=== PATIENT | female | born 1980 | race American Indian/Alaskan Native ===

== ENCOUNTER 2016-08-20 18:55 | Emergency (ER) | payer SELFPAY ==
[2016-08-20 20:28] VITALS: BP 125/78
[2016-08-20 21:04] LABS: Basophils % (Auto) 0.9 % (0.0-1.8); Eosinophils % (Auto) 2.4 % (0.0-4.3); Hematocrit 42.1 % (30.3-42.9); Hemoglobin 13.4 gm/dl (10.1-14.3); Mean Corpuscular HGB Conc 32 % (30-34); Mean Corpuscular Hemoglobin 27 pg (28-32); Mean Corpuscular Volume 86 fl (79-97); Red Blood Count 4.93 M/mm3 (3.65-5.03); Red Cell Distribution Width 14.1 % (13.2-15.2); White Blood Count 16.5 K/mm3 (4.5-11.0)
[2016-08-20 21:05] LABS: Platelet Count 276 K/mm3 (140-440)
[2016-08-20 21:17] LABS: Alanine Aminotransferase 12 units/L (7-56); Albumin 4.1 g/dL (3.9-5); Alkaline Phosphatase 59 units/L (35-129); Anion Gap 15 mmol/L; Blood Urea Nitrogen 12 mg/dL (7-17); Calcium 9.2 mg/dL (8.4-10.2); Carbon Dioxide 26 mmol/L (22-30); Chloride 100.6 mmol/L (98-107); Glucose 100 mg/dL (65-100); Lipase 23 units/L (13-60); Potassium 3.5 mmol/L (3.6-5.0); Sodium 138 mmol/L (137-145); Total Protein 8.3 g/dL (6.3-8.2)
[2016-08-20 21:42] LABS: Bilirubin,Urine NEG (Negative); Blood,Urine NEG (Negative); Ketones,Urine NEG (Negative); Leukocyte Esterase,Urine MOD (Negative); Mucus,Urine 1+ /HPF; Nitrite,Urine NEG (Negative); Protein,Urine <15 mg/dL mg/dL (Negative); Urobilinogen,Urine < 2.0 mg/dL (<2.0)
== END 2016-08-21 00:50 | disposition left against medical advice (07) ==
LOC: ED 18:55
DX: R06.02 Shortness of breath (principal); Z53.21 Procedure and treatment not carried out due to patient leaving prior to being seen by health care provider
CPT/HCPCS: 36415; 80053; 81001; 83690; 84703; 85025

== ENCOUNTER 2016-11-11 10:08 | Emergency (ER) | payer OTHER ==
[2016-11-11 10:40] VITALS: BP 123/80
[2016-11-11 11:12] LABS: Basophils % (Auto) 0.9 % (0.0-1.8); Eosinophils % (Auto) 2.4 % (0.0-4.3); Hematocrit 41.8 % (30.3-42.9); Hemoglobin 13.3 gm/dl (10.1-14.3); Mean Corpuscular HGB Conc 32 % (30-34); Mean Corpuscular Hemoglobin 27 pg (28-32); Mean Corpuscular Volume 85 fl (79-97); Platelet Count 318 K/mm3 (140-440); Red Blood Count 4.91 M/mm3 (3.65-5.03); White Blood Count 9.1 K/mm3 (4.5-11.0)
[2016-11-11 11:48] LABS: Bacteria,Urine 1+ /HPF (Negative); Bilirubin,Urine SM (Negative); Blood,Urine MOD (Negative); Ketones,Urine TR mg/dL (Negative); Leukocyte Esterase,Urine MOD (Negative); Mucus,Urine 2+ /HPF; Nitrite,Urine NEG (Negative)
--- NOTE | 2016-11-11 14:03 | Emergency Department Report ---
ED Female HPI - General Chief complaint: Urogenital-Female Stated complaint: PAIN ON LEFT SIDE/ABNORMAL BLEEDING Time Seen by Provider: 11/11/16 13:12 Source: patient Mode of arrival: Ambulatory Limitations: No Limitations - History of Present Illness Initial comments: This is a 36-year-old female nontoxic, well nourished in appearance, no acute signs of distress presents to the ED complaining of abnormal menses x1 month. Patient stated she has been having these symptoms and saw her PCP and was dx with BV and is being treated with Flagyl and stated symptoms has not resolved. Patient is also c/o intermittent left sided lower abd pain intermittent before menses. Patient describes pain as cramping with level of 4/10. Patient stated has taken 2 test that are negative and wants to make sure she is not . Patient denies any pelvic pain, vaginal discharge, dizziness, headache , shortness of breathe, fever, chills, n/v, chest pain, back pain, numbness, tingling, right-sided abdominal pain. Patient stated on 10/22 patient has a normal menses for 5 days and then has another one for 1 day a week later. Today patient stated has a menses that started 2 days ago and describes it as normal but wants to make sure she is not due to left-sided abdominal cramping during menses. Patient states allergies to Keflex, PCN, and Bactrim. Patient states PMH includes Asthma, ovarian cyst, and BV. MD Complaint: vaginal bleeding -: Gradual, month(s) (1) Radiation: non-radiating Severity: mild Severity scale (0 -10): 4 Quality: cramping Consistency: intermittent Improves with: none Worsens with: none Are you Now?: No Last Menstrual Period: 11/04/16 EDC: 08/11/17 Associated Symptoms: vaginal bleeding, abdominal pain (left lower quad). denies : vaginal discharge, nausea/vomiting, fever/chills, headaches, loss of appetite , dysuria, hematuria, rash, seizure, shortness of breath, syncope, weakness - Related Data Sexually active: Yes Previous Rx's Medication Instructions Recorded Last Taken Type Nitrofurantoin [place]/M-Cryst 100 mg PO Q12HR #14 capsule 11/11/16 Unknown Rx [Macrobid CAP] Allergies Allergy/AdvReac Type Severity Reaction Status Date / Time cephalexin monohydrate AdvReac Unknown Verified 08/08/15 21:05 [From Keflex] Penicillins AdvReac Unknown Verified 08/08/15 21:04 sulfamethoxazole AdvReac Unknown Verified 08/08/15 21:05 [From Bactrim] trimethoprim [From Bactrim] AdvReac Unknown Verified 08/08/15 21:05 ED Review of Systems ROS: Stated complaint: PAIN ON LEFT SIDE/ABNORMAL BLEEDING Other details as noted in HPI Constitutional: denies: chills, fever Eyes: denies: eye pain, eye discharge, vision change ENT: denies: ear pain, throat pain Respiratory: denies: cough, shortness of breath, wheezing Cardiovascular: denies: chest pain, palpitations Endocrine: no symptoms reported Gastrointestinal: abdominal pain. denies: nausea, diarrhea Genitourinary: abnormal menses. denies: urgency, dysuria, discharge Musculoskeletal: denies: back pain, joint swelling, arthralgia Skin: denies: rash, lesions Neurological: denies: headache, weakness, paresthesias Psychiatric: denies: anxiety, depression Hematological/Lymphatic: denies: easy bleeding, easy bruising ED Past Medical Hx - Past Medical History Previous Medical History?: Yes Hx Asthma: Yes Additional medical history: Bacterial vaginosis. Ovarian cyst - Surgical History Past Surgical History?: Yes Additional Surgical History: Abd laparoscopy - Social History Smoking Status: Never Smoker Substance Use Type: Alcohol - Medications Home Medications: Home Medications Medication Instructions Recorded Confirmed Last Taken Type Nitrofurantoin [place]/M-Cryst 100 mg PO Q12HR #14 capsule 11/11/16 Unknown Rx [Macrobid CAP] ED Physical Exam - General Limitations: No Limitations General appearance: alert, in no apparent distress - Head Head exam: Present: atraumatic, normocephalic, normal inspection - Eye Eye exam: Present: normal appearance, PERRL, EOMI. Absent: scleral icterus, conjunctival injection, nystagmus, periorbital swelling, periorbital tenderness Pupils: Present: normal accommodation - ENT ENT exam: Present: normal exam, normal orophraynx, mucous membranes moist, TM's normal bilaterally, normal external ear exam - Neck Neck exam: Present: normal inspection, full ROM. Absent: tenderness, meningismus, lymphadenopathy, thyromegaly - Respiratory Respiratory exam: Present: normal lung sounds bilaterally. Absent: respiratory distress, wheezes, rales, rhonchi, stridor, chest wall tenderness, accessory muscle use, decreased breath sounds, prolonged expiratory - Cardiovascular Cardiovascular Exam: Present: regular rate, normal rhythm, normal heart sounds. Absent: bradycardia, tachycardia, irregular rhythm, systolic murmur, diastolic murmur, rubs, gallop - GI/Abdominal GI/Abdominal exam: Present: soft, normal bowel sounds. Absent: distended, tenderness, guarding, rebound, rigid, diminished bowel sounds - Expanded GI/Abdominal Exam Expanded GI/Abdominal exam: Absent: psoas sign, obturator sign, heel tap sign, Elizalde's sign, Rovsing's sign, tenderness at [place]bur[place]'s Point, ascites - Rectal Rectal exam: Present: deferred - External exam: Present: normal external exam, other (chiropractic care Laxmi Galvin present during exam). Absent: erythema, swelling, lesions, lacerations, ecchymosis, bleeding Speculum exam: Present: normal speculum exam, vaginal bleeding, other ( chiropractic care Laxmi Galvin present during exam). Absent: erythema, vaginal discharge, cervical discharge, foreign body, tissue, laceration Bi-manual exam: Present: normal bi-manual exam, other (chiropractic care Laxmi Galvin present during exam). Absent: cervical motion tendernes, adnexal tenderness, adnexal mass, uterine enlargement, uterine tenderness - Extremities Exam Extremities exam: Present: normal inspection, full ROM, normal capillary refill. Absent: tenderness, pedal edema, joint swelling, calf tenderness - Back Exam Back exam: Present: normal inspection, full ROM. Absent: tenderness, CVA tenderness (R), CVA tenderness (L), muscle spasm, paraspinal tenderness, vertebral tenderness, rash noted - Neurological Exam Neurological exam: Present: alert, oriented X3, CN II-XII intact, normal gait, reflexes normal - Psychiatric Psychiatric exam: Present: normal affect, normal mood - Skin Skin exam: Present: warm, dry, intact, normal color. Absent: rash ED Course Vital Signs 11/11/16 10:32 Temperature 98 F Pulse Rate 84 Respiratory 16 Rate Blood Pressure 123/80 O2 Sat by Pulse 99 Oximetry - Reevaluation(s) Reevaluation #1: 11/11/16 14:06 Patient is speaking in full sentences with no signs of distress noted. ED Medical Decision Making - Lab Data Result diagrams: 11/11/16 10:55 11/11/16 13:58 - Radiology Data Radiology results: report reviewed interpreted by me: Dictated by radiologist Normal examination - Medical Decision Making 36-year-old female that presents with abnormal menses x1 month. CBC, BMP, lipase , amylase, , obtained with negative findings of no abnormalities. Ultrasound of abdomen/pelvis with transvaginal and the radiologist with normal examination. UA indicates L8 RBCs, bacteria 1+, mucus 2+, and moderate leukocytes. Patient received Macrobid for UTI. Patient notified of results with noted by the patient. Patient was instructed to follow-up with a primary care doctor/pile driving technician in 3-5 days or if symptoms worsen and continue return to emergency room as soon as possible possible. At time time of discharge, the patient does not seem toxic or ill in appearance. No acute signs of distress noted. Patient agrees to discharge treatment plan of care. No further questions noted by the patient. Critical care attestation.: If time is entered above; I have spent that time in minutes in the direct care of this critically ill patient, excluding procedure time. ED Disposition Clinical Impression: Abnormal menses UTI (urinary tract infection) Qualifiers: Urinary tract infection type: site unspecified Hematuria presence: with hematuria Qualified Code(s): N39.0 - Urinary tract infection, site not specified Disposition: DC-01 TO HOME OR SELFCARE Is pt being admited?: No Does the pt Need Aspirin: No Condition: Stable Instructions: Nitrofurantoin Combination (By mouth), Urinary Tract Infection in Women (ED) Additional Instructions: Follow-up with a primary care doctor/pile driving technician in 3-5 days or if symptoms worsen and continue return to emergency room as soon as possible possible. Prescriptions: Nitrofurantoin [place]/M-Cryst [Macrobid CAP] 100 mg PO Q12HR #14 capsule Referrals: JOSIANE LOMELI MD [Primary Care Provider] - 3-5 Days DIANA AZEVEDO MD [Staff Physician] - 3-5 Days TIERRA FONTENOT MD [Staff Physician] - 3-[address] [facility] [Outside] - 3-5 Days [facility] [Outside] - 3-5 Days Forms: Work/School Release Form(ED)
[2016-11-11 14:37] LABS: Amylase 80 units/L (27-131); Anion Gap 18 mmol/L; BUN/Creatinine Ratio 11.25; Blood Urea Nitrogen 9 mg/dL (7-17); Calcium 9.5 mg/dL (8.4-10.2); Carbon Dioxide 24 mmol/L (22-30); Chloride 103.5 mmol/L (98-107); Glucose 87 mg/dL (65-100); Lipase 18 units/L (13-60); Potassium 4.6 mmol/L (3.6-5.0); Sodium 141 mmol/L (137-145)
--- NOTE | 2016-11-11 15:18 | Ultrasound Report ---
FINAL REPORT PROCEDURE: US ABDOMEN COMPLETE TECHNIQUE: Real-time sonography in multiple planes of the abdomen was performed with image documentation. CPT 78200 HISTORY: abd/pelvic pain w vag bleeding COMPARISON: No prior studies are available for comparison. FINDINGS: Liver: Normal size and echotexture with no evidence of cystic or solid mass lesions. Gallbladder: Fluid filled. No gallstones, wall thickening, pericholecystic fluid, or sonographic Elizalde's sign. Intrahepatic bile ducts: Normal caliber . Extrahepatic bile ducts: Normal caliber. Pancreas: No abnormalities are seen but not well visualized. Aorta: Visualized portions appear normal. IVC: Visualized portions appear normal. RIGHT kidney: Normal echotexture. No focal renal mass, calculus, or hydronephrosis. Length: 10.2cm. LEFT kidney: Normal echotexture. No focal renal mass, calculus, or hydronephrosis . Length: 10.6cm. Spleen: Normal size and echotexture. No focal lesions. Intraperitoneal fluid: None . Other: None . IMPRESSION: Normal Examination.
--- NOTE | 2016-11-11 15:19 | Ultrasound Report ---
FINAL REPORT PROCEDURE: US PELVIC COMPLETE TECHNIQUE: Real-time transabdominal sonography in multiple planes of the pelvis was performed. The pelvic structures were not optimally visualized. Transvaginal sonography was then performed to better evaluate the structures and/or abnormalities described below with image documentation. Grayscale, color flow Doppler imaging and velocity spectral waveform analysis of the ovaries was employed (duplex imaging). CPT 20431, 95663, and 04078 HISTORY: abd/pelvic pain w vag bleeding COMPARISON: No prior studies are available for comparison. FINDINGS: Uterus measures 9.0 cm in length. Endometrial thickness is 1.2 cm. No uterine masses are seen. Few tiny nabothian cysts are seen. Right ovary measures 4.4 x 2.6 x 3.5 cm. Left ovary measures 3.5 x 1.9 x 1.9 cm. Follicles are seen the ovaries. Normal Doppler flow is seen in the ovaries. No free pelvic fluid is seen. IMPRESSION: No significant abnormality is seen.
--- NOTE | 2016-11-11 15:27 | Ultrasound Report ---
FINAL REPORT PROCEDURE: US TRANSVAGINAL TECHNIQUE: Real-time transabdominal sonography in multiple planes of the pelvis was performed. The pelvic structures were not optimally visualized. Transvaginal sonography was then performed to better evaluate the structures and/or abnormalities described below with image documentation. Grayscale, color flow Doppler imaging and velocity spectral waveform analysis of the ovaries was employed (duplex imaging). CPT 76215, 92707, and 13975 HISTORY: vag bleeding COMPARISON: No prior studies are available for comparison. FINDINGS: Uterus measures 9.0 cm in length. Endometrial thickness is 1.2 cm. No uterine masses are seen. Few tiny nabothian cysts are seen. Right ovary measures 4.4 x 2.6 x 3.5 cm. Left ovary measures 3.5 x 1.9 x 1.9 cm. Follicles are seen the ovaries. Normal Doppler flow is seen in the ovaries. No free pelvic fluid is seen. IMPRESSION: No significant abnormality is seen.
== END 2016-11-11 16:23 | disposition home or self-care (01) ==
LOC: ED 10:08
DX: N92.5 Other specified irregular menstruation (principal); N39.0 Urinary tract infection, site not specified; J45.909 Unspecified asthma, uncomplicated; Z88.0 Allergy status to penicillin; Z88.2 Allergy status to sulfonamides; Z88.8 Allergy status to other drugs, medicaments and biological substances
CPT/HCPCS: 36415; 76700; 76830; 76856; 80048; 81001; 81025; 82150; 83690; 85025